=== PATIENT | male | born 1935 | race Caucasian/White ===

== ENCOUNTER 2016-12-14 09:49 | Emergency (ER) | payer MEDICARE, BC ==
--- NOTE | 2016-12-20 17:58 | ER ---
ADMIT: 12/14/2016 RM/LOC: ER [facility] MR#: [id number] [address] [id number] CATHERINE WILLIAMSON [address] [place] [address] Emergency Room Report SEX: M AGE: 81 : 1935 DATE: 12/14/2016 ADDENDUM: An 81-year-old white male coming in initially with rectal bleeding, however, exam did not show any rectal blood on the physical exam. However, he does have a breakdown and decubitus that may be stage I at this time. He is also breaking down on his scrotal area. He is incontinent and is unable to get up and use the bathroom. He also has other medical comorbidities as well including hypertension, hypothyroidism, COPD, and he suffered a left leg trauma some years ago with decreased movement and unable to get around. He lives at home with his son who is attempting to do the best he can by taking care of him, but he really cannot. There is a question of whether his nutrition is being adequately addressed since his albumin is 1.3 here. His TSH is 7.020. He is supposed to be on supplement thyroid, which again is some question as well. He does have minimum cellulitis of his perineum with initial first grade breakdown, i.e., decubitus, hypothyroidism with a rule out of whether he is compliant with that. Hypoalbuminemia pointing to malnutrition and a chronic anemia, which he has had before. We spoke with the [facility] and they will take him in transfer. CONDITION ON DISCHARGE: Serious, but stable. Gamaliel Robison MD/ dannie JOB #: [id number] CC: Gamaliel Robison MD, Attending Physician [facility] Physician, Family Physician
== END 2016-12-14 15:00 ==
LOC: ER 09:49
DX: L03.315 Cellulitis of perineum (principal); E46 Unspecified protein-calorie malnutrition; D64.9 Anemia, unspecified; E88.09 Other disorders of plasma-protein metabolism, not elsewhere classified; E03.9 Hypothyroidism, unspecified; I10 Essential (primary) hypertension; J44.9 Chronic obstructive pulmonary disease, unspecified; Z79.899 Other long term (current) drug therapy